=== PATIENT | female | born 1940 | race African-American/Black ===

== ENCOUNTER → 2017-05-30 | Outpatient (CLI) | payer OTHER ==
[~2017-05-30] MED LIST: AMLO5TAB4 PO; ATOR10TA9 PO; CHOL10002 PO; HYDR-3307 PO; LEVO50TA5 PO; LOSA100T6 PO; MELO15TA24 PO; PRED5TAB PO
[2017-05-30 13:35] LABS: ASPARTATE AMINO TRANSFERASE 12 U/L (15-37); BLOOD UREA NITROGEN 14 mg/dL (7-18)
== END | disposition home or self-care (01) ==
LOC: STAR 12:12
PROVIDERS: ATTEND Surgery
DX: Z01.818 Encounter for other preprocedural examination (principal); M06.822 Other specified rheumatoid arthritis, left elbow; M06.821 Other specified rheumatoid arthritis, right elbow; M06.832 Other specified rheumatoid arthritis, left wrist; M06.831 Other specified rheumatoid arthritis, right wrist
CPT/HCPCS: 36415; 80053; 93005

== ENCOUNTER 2017-06-10 09:13 | Day surgery (SDC) | payer OTHER ==
[2017-05-30 12:47] VITALS: BP 157/84
[~2017-06-10] VITALS: Ht 174 cm; Wt 78.8 kg
[2017-06-10] MEDS ORDERED: EPINEPHRINE 1 MG/ML, 1ML ONE (09:24)
[2017-06-10] MEDS ORDERED: BUPIVACAINE/PF 0.5% ONE (09:24)
[2017-06-10] MEDS ORDERED: LACTATED RINGERS 1,000 ML IV SCH (10:00)
[2017-06-10] MEDS ORDERED: LIDOCAINE 1%, 2ML SQ PRN (10:00)
[2017-06-10 10:02] VITALS: BP 157/84
[2017-06-10] MEDS ORDERED: LIDOCAINE 1%, 2ML ONE (10:12)
[2017-06-10] MEDS ORDERED: FENTANYL PF 100 MCG/2ML ONE ×4 (10:55→13:07)
[2017-06-10] MEDS ORDERED: PROPOFOL 10 MG/ML, 20ML ONE (10:56)
[2017-06-10] MEDS ORDERED: ONDANSETRON 2MG/ML, 2ML IVPush PRN (11:00)
[2017-06-10] MEDS ORDERED: HYDROcodone/APAP 7.5-325MG/15ML UDC PO PRN (11:00)
[2017-06-10] MEDS ORDERED: OXYcodone 5 MG/5 ML ORAL.SOL UDC PO PRN ×2 (11:00→14:30)
[2017-06-10] MEDS ORDERED: ACETAMINOPHEN 325 MG TABLET PO PRN (11:00)
[2017-06-10] MEDS ORDERED: VASOPRESSIN 20 UNIT/ML, 1ML ONE (11:39)
[2017-06-10] MEDS ORDERED: CEFAZOLIN 1,000 MG ONE (11:39)
[2017-06-10] MEDS ORDERED: SUCCINYLCHOLINE 20 MG/ML, 10ML ONE (11:39)
[2017-06-10] MEDS ORDERED: LIDOCAINE GEL 2%, 5ML ONE (11:43)
[2017-06-10] MEDS ORDERED: ACETAMINOPHEN 325 MG TABLET ONE (12:54)
[2017-06-10] MEDS ORDERED: OXYcodone 5 MG/5 ML ORAL.SOL UDC ONE (12:54)
[2017-06-10] MEDS: FENTANYL PF 100 MCG/2ML IV PRN ×4 (12:58→13:38)
[2017-06-10] MEDS: HYDROmorphone 1 MG/ML, 1ML IV PRN ×4 (13:00→13:47)
[2017-06-10] MEDS ORDERED: HYDROmorphone 1 MG/ML, 1ML ONE ×2 (13:07→13:25)
[2017-06-10] MEDS ORDERED: HYDROmorphone 2 MG/ML, 1ML ONE (14:18)
[2017-06-10] MEDS ORDERED: OXYcodone/APAP 5/325MG TABLET PO PRN (14:30)
[2017-06-10] MEDS ORDERED: HYDROcodone/APAP 5/325 TABLET PO PRN (14:30)
[2017-06-10] MEDS ORDERED: HYDROmorphone 2 MG/ML, 1ML IVPush PRN (14:30)
== END 2017-06-10 15:30 ==
LOC: OUT 09:13
PROVIDERS: ATTEND Surgery
DX: M06.221 Rheumatoid bursitis, right elbow (principal); M06.331 Rheumatoid nodule, right wrist; I10 Essential (primary) hypertension; E78.5 Hyperlipidemia, unspecified; E03.9 Hypothyroidism, unspecified; Z91.09 Other allergy status, other than to drugs and biological substances; Z88.8 Allergy status to other drugs, medicaments and biological substances; Z88.0 Allergy status to penicillin
CPT/HCPCS: 13160; 24105; 25115; 88305; J0171; J0330; J0690; J1170; J2704; J3010; J3490; J7120

== ENCOUNTER → 2018-09-14 | Outpatient (CLI) | payer MEDICARE ==
[~2018-09-14] MED LIST changes: +LOSA100T14 PO; -LOSA100T6 PO
== END | disposition home or self-care (01) ==
LOC: CFH 13:18
PROVIDERS: ATTEND Family Medicine
DX: G31.89 Other specified degenerative diseases of nervous system (principal); R90.82 White matter disease, unspecified; F17.200 Nicotine dependence, unspecified, uncomplicated
CPT/HCPCS: 70551